=== PATIENT | female | born 1980 | race Caucasian/White ===

== ENCOUNTER 2019-10-04 11:22 | Emergency (ER) | payer OTHER, SELFPAY ==
[2019-10-04 11:27] VITALS: BP 141/78; PULSE 98; RESP 16; TEMP 37; O2SAT 100
--- NOTE | 2019-10-04 11:39 | ED.BACK ---
HPI - Back Pain/Injury General Chief Complaint: Back Pain/Injury Stated Complaint: lower back pain Time Seen by Provider: 10/04/19 11:40 Source: patient and RN notes reviewed Mode of arrival: ambulatory Limitations: no limitations History of Present Illness HPI Narrative: This is a 39 years old female presents to the office for a medication refill. She went to her pain doctor and found out that his business is no longer in business. She claims that she ran out of her hydrocodone since Friday and she needs something for the time being until she can see a new provider. She does not want alternative medications besides hydrocodone. She admits to history of chronic back pain for years due to heavy lifting. Denies surgery. Denies acute injury or trauma. She admits to stress incontinence at time but nothing new. Related Data Home Medications Medication Instructions Recorded Confirmed hydrocodone-acetaminophen 1 tablet PO Q8-10H 10/04/19 10/04/19 Allergies Allergy/AdvReac Type Severity Reaction Status Date / Time amoxicillin AdvReac Severe Rash Verified 10/04/19 11:29 Review of Systems Review of Systems: Narrative: CONSTITUTIONAL: Denies fever ENT: Denies sinus congestion CARDIOVASCULAR: Denies chest pain, palpitation, edema. RESPIRATORY: Denies dyspnea, cough GASTROINTESTINAL: Denies abdominal pain, nausea, vomiting GENITOURINARY: Admits to stress incontinence at times when she coughs or sneezes SKIN: Denies rash MUSCULOSKELETAL: Reports lower back pain without any numbness or tingling sensation NEUROLOGIC: Denies lightheaded All other systems reviewed are negative, except as documented in HPI. [facility] Past Medical History Medical History (Updated 10/04/19 @ 12:46 by YESSICA Lam) Chronic back pain Chronic, continuous use of opioids Comments At time of signature, I agree with nursing past medical, surgical, social and family history. There is no relevant family history pertinent to the presenting complaint. Exam Narrative: Exam Narrative: GENERAL: This is a well-nourished, well-developed patient, in no apparent distress. CARDIOVASCULAR: Regular rate and rhythm without murmurs, gallops, or rubs. RESPIRATORY: Clear to auscultation. Breath sounds equal bilaterally. No wheezes, rales, or rhonchi. GASTROINTESTINAL: Abdomen soft, non-tender, nondistended. Bowel sounds are active. No hepato-splenomegaly, or palpable masses. No guarding. SKIN: warm, intact with no suspicious lesions or rash, good texture and turgor. NEURO: awake, alert, and oriented to person, place and time. There were no obvious focal neurologic abnormalities. Steady gait EXTREMITIES: Normal range of motion. No edema. No calf tenderness. BACK: Nontender without deformity or crepitance. No flank tenderness. Bilateral symmetrical knee reflexes. Licha Coma Scale Eye Opening: Spontaneous 4 Licha Coma Scale Motor: Obeys Commands 6 Licha Coma Scale Verbal: Oriented 5 Course Vital Signs Vital signs: Vital Signs Temperature 98.6 F 10/04/19 11:27 Pulse Rate 98 10/04/19 11:27 Respiratory Rate 16 10/04/19 11:27 Blood Pressure 141/78 H 10/04/19 11:27 Pulse Oximetry 100 10/04/19 11:27 Temperature 98.6 F 10/04/19 11:27 Pulse Rate 98 10/04/19 11:27 Respiratory Rate 16 10/04/19 11:27 Blood Pressure 141/78 H 10/04/19 11:27 Pulse Oximetry 100 10/04/19 11:27 MDM - Back Pain/Injury MDM Narrative Medical decision making narrative: I offered alternative pain relief such as Celebrex, naproxen, Mobic patient declined all of those. I did not feel comfortable refilling her hydrocodone since she just had 80 tabs from her pain doctor whom she claims that his office suddenly closed without any notice. I recommend seek helps from other pain clinic or her family doctor or seek ER. Discharge instructions reviewed with patient, as well as provided in writing per nursing staff. The instructions also include specif
== END 2019-10-04 12:00 | disposition home or self-care (01) ==
PROVIDERS: Emergency Provider Nurse Practitioner; PCP Internal Medicine
DX: Z76.0 Encounter for issue of repeat prescription (principal)
CPT/HCPCS: 99211; 99213; G0463